=== PATIENT | female | born 1990 | race Caucasian/White ===

== ENCOUNTER 2016-06-27 22:04 | Emergency (ER) | payer SELFPAY ==
[~2016-06-27] VITALS: Ht 152.4 cm; Wt 49.0 kg
[2016-06-27 22:09] VITALS: Ht 152.4 cm; Wt 49.0 kg
[2016-06-28] MEDS ORDERED: TETRACAINE 0.5% 4 ML OPH RIGHT EYE ONE
[2016-06-28] MEDS ORDERED: SOD CHLORIDE 0.9% 500 ML IV ONE
--- NOTE | 2016-06-28 01:08 | ERD ---
ER Documentation Chief Complaint Date/Time DATE: 06/28/16 TIME: 01:06 Chief Complaint right eye pain/ redness today HPI This is a 25 female comes in with right eye pain and redness today. She says she might of had some inflated I. She denies any fevers or chills. She denies any visual acuity changes. She denies any other current issues. ROS All systems reviewed and are negative except as per history of present illness. Allergies Allergies: Coded Allergies: No Known Allergy (Unverified , 06/27/16) PMhx/Soc History of Surgery: No Anesthesia Reaction: No Hx Neurological Disorder: No Hx Respiratory Disorders: No Hx Cardiac Disorders: No Hx Psychiatric Problems: No Hx Miscellaneous Medical Probl: No Hx Alcohol Use: No Hx Substance Use: No Hx Tobacco Use: No Physical Exam Vitals Vital Signs Date Time Temp Pulse Resp B/P Pulse Ox O2 Delivery O2 Flow Rate FiO2 06/27/16 22:09 97.5 101 20 112/72 100 Physical Exam Const: [] Head: Atraumatic Eyes: Normal Conjunctiva ENT: Normal External Ears, Nose and Mouth. Neck: Full range of motion..~ No meningismus. Resp: Clear to auscultation bilaterally Cardio: Regular rate and rhythm, no murmurs Abd: Soft, non tender, non distended. Normal bowel sounds Skin: No petechiae or rashes Back: No midline or flank tenderness Ext: No cyanosis, or edema Neur: Awake and alert Psych: Normal Mood and Affect Results 24 hrs Current Medications Medications (Trade) Dose Ordered Sig/Alyssa Route PRN Reason Start Time Stop Time Status Last Admin Dose Admin Tetracaine HCl 1 drop 1 drop ONCE ONCE RIGHT EYE 06/28/16 00:00 06/28/16 00:01 DC 06/27/16 23:54 Sodium Chloride (NS) 500 ml @ 500 mls/hr Q1H ONCE IV 06/28/16 00:00 06/28/16 00:59 DC 06/27/16 23:53 Procedures/MDM Medical assessment: Patient comes in with erythema anterior her sclera. No evidence of foreign body under fluorescein examination. Tetracaine a Favian lens applied with good resolution symptoms. Patient will be discharged home with erythromycin ophthalmic ointment. Follow-up with ophthalmology tomorrow. Departure Diagnosis: Primary Impression: Pain in eye Laterality: unspecified laterality Qualified Code: H57.10 - Pain in eye, unspecified laterality Condition: ANURADHA Garcia June 28, 2016 01:07
[2016-06-28] MEDS ORDERED: TRAM50TA2 PO (01:35)
[2016-06-28] MEDS ORDERED: ERYTOPOI RIGHT EYE (01:35)
== END 2016-06-28 01:47 | disposition home or self-care (01) ==
LOC: E/R 22:04 → FTE 06-28 01:47
DX: H57.11 Ocular pain, right eye (principal)
CPT/HCPCS: 99284; J7040

== ENCOUNTER 2017-06-27 13:23 | Outpatient (CLI) | END 2017-06-27 18:00 | disposition home or self-care (01) ==

== ENCOUNTER 2017-06-27 21:37 | Inpatient (IN) | END 2017-06-28 08:55 | disposition home or self-care (01) | DRG 780 ==

== ENCOUNTER 2017-07-10 20:59 | Inpatient (IN) | END 2017-07-15 14:59 | disposition home or self-care (01) | DRG 765 ==